=== PATIENT | male | born 1960 | race Caucasian/White ===

== ENCOUNTER 2019-11-29 02:13 | Emergency (ER) | payer OTHER ==
[~2019-11-29] VITALS: Ht 172.7 cm; Wt 77.1 kg
[2019-11-29 02:19] VITALS: Ht 172.7 cm; Wt 77.1 kg
[2019-11-29 03:13] LABS: BASOPHIL % 0.4 % (0-2); PLATELET COUNT 163 x10^3mcL (130-400); RED CELL DISTRIBUTION WIDTH 13.7 % (11.5-14.5)
[2019-11-29 03:52] LABS: CALCIUM 8.7 mg/dL (8.5-10.1); CARBON DIOXIDE 25.9 mmol/L (21-32); CREATININE SERUM 1.4 mg/dL (0.7-1.3); POTASSIUM SERUM 3.8 mmol/L (3.5-5.1)
[2019-11-29 03:59] LABS: BILIRUBIN TOTAL 1.06 mg/dL (0.20-1.00)
[2019-11-29 04:36] VITALS: BP 117/77
== END 2019-11-29 04:36 | disposition home or self-care (01) ==
LOC: ED 02:13
PROVIDERS: Student in an Organized Health Care Education/Training Program
DX: E86.0 Dehydration (principal); R55 Syncope and collapse
CPT/HCPCS: Q0092